=== PATIENT | female | born 1980 | race Caucasian/White ===

== ENCOUNTER 2017-03-05 17:10 | Inpatient (IN) | payer OTHER ==
[~2017-03-05] VITALS: Ht 172.7 cm; Wt 108.0 kg
[2017-03-05] MEDS ORDERED: ALBU90OI INH (17:48)
[2017-03-05] MEDS ORDERED: LEVOTHYROXINE100 MCG IM (17:48)
[2017-03-05] MEDS ORDERED: Verotin-Gr Cap1 EACH PO (17:48)
[2017-03-05 17:58] LABS: BASOPHILS ABSOLUTE AUTO 0.04 K/mm3 (0.00-0.23); BASOPHILS PERCENT AUTO 0 % (0-2); EOSINOPHILS PERCENT AUTO 3 % (0-6); Hematocrit 35.3 % (33.0-51.0); Hemoglobin 11.7 g/dL (11.5-16.0); IMMATURE GRAN ABSOLUTE AUTO 0.17 K/mm3 (0.00-0.10); IMMATURE GRAN PERCENT AUTO 1 % (0-1); LYMPHOCYTES ABSOLUTE AUTO 2.96 K/mm3 (0.84-5.20); LYMPHOCYTES PERCENT AUTO 22 % (21-46); MONOCYTES ABSOLUTE AUTO 0.75 K/mm3 (0.16-1.47); MONOCYTES PERCENT AUTO 6 % (4-13); Mean Corpuscular HGB 29.3 pg (26.0-34.0); Mean Corpuscular HGB Conc 33.1 g/dL (31.5-36.5); Mean Corpuscular Volume 88 fL (80-100); Mean Platelet Volume 9.8 fL (9.1-12.4); NEUTROPHILS ABSOLUTE AUTO 9.16 K/mm3 (1.96-9.15); NEUTROPHILS PERCENT AUTO 68 % (41-73); Platelet Count 308 K/mm3 (150-400); RDW Coefficient Variation 14.6 % (11.7-14.2); RDW Standard Deviation 46.8 fL (35.1-46.3); White Blood Cell Count 13.48 K/mm3 (4.00-11.30)
[2017-03-06 06:35] LABS: Hematocrit 28.5 % (33.0-51.0); Hemoglobin 9.2 g/dL (11.5-16.0); Mean Corpuscular HGB Conc 32.3 g/dL (31.5-36.5); Mean Corpuscular Volume 90 fL (80-100); Mean Platelet Volume 10.2 fL (9.1-12.4); Platelet Count 267 K/mm3 (150-400); RDW Coefficient Variation 14.6 % (11.7-14.2); RDW Standard Deviation 46.9 fL (35.1-46.3); Red Blood Cell Count 3.17 M/mm3 (3.80-5.20); White Blood Cell Count 18.24 K/mm3 (4.00-11.30)
[2017-03-07 06:36] LABS: BASOPHILS ABSOLUTE AUTO 0.05 K/mm3 (0.00-0.23); BASOPHILS PERCENT AUTO 0 % (0-2); EOSINOPHILS ABSOLUTE AUTO 0.25 K/mm3 (0.00-0.68); EOSINOPHILS PERCENT AUTO 2 % (0-6); Hematocrit 27.2 % (33.0-51.0); Hemoglobin 8.6 g/dL (11.5-16.0); IMMATURE GRAN ABSOLUTE AUTO 0.14 K/mm3 (0.00-0.10); IMMATURE GRAN PERCENT AUTO 1 % (0-1); LYMPHOCYTES ABSOLUTE AUTO 3.43 K/mm3 (0.84-5.20); LYMPHOCYTES PERCENT AUTO 26 % (21-46); MONOCYTES ABSOLUTE AUTO 0.71 K/mm3 (0.16-1.47); MONOCYTES PERCENT AUTO 5 % (4-13); Mean Corpuscular HGB 29.3 pg (26.0-34.0); Mean Corpuscular HGB Conc 31.6 g/dL (31.5-36.5); Mean Corpuscular Volume 93 fL (80-100); Mean Platelet Volume 9.8 fL (9.1-12.4); NEUTROPHILS PERCENT AUTO 65 % (41-73); Platelet Count 270 K/mm3 (150-400); RDW Coefficient Variation 15.1 % (11.7-14.2); RDW Standard Deviation 50.2 fL (35.1-46.3); Red Blood Cell Count 2.94 M/mm3 (3.80-5.20); White Blood Cell Count 13.08 K/mm3 (4.00-11.30)
[2017-03-08] MEDS ORDERED: Percocet 5-3251 EACH PO (09:31)
== END 2017-03-08 10:05 | disposition home or self-care (01) | DRG 775 ==
LOC: OBS 17:10 → BC 17:16 → OBS 17:28 → BC 17:31
PROVIDERS: Advanced Practice Midwife
PROC: 10E0XZZ Delivery of Products of Conception, External Approach (ICD-10-PCS; principal; 2017-03-06)
PROC: 0KQM0ZZ Repair Perineum Muscle, Open Approach (ICD-10-PCS; 2017-03-06)
DX: O99.824 Streptococcus B carrier state complicating childbirth (principal); E66.9 Obesity, unspecified; E03.9 Hypothyroidism, unspecified; O69.2XX0 Labor and delivery complicated by other cord entanglement, with compression, not applicable or unspecified; O99.284 Endocrine, nutritional and metabolic diseases complicating childbirth; O99.214 Obesity complicating childbirth; O70.1 Second degree perineal laceration during delivery; Z3A.39 39 weeks gestation of pregnancy; Z37.0 Single live birth; Z79.899 Other long term (current) drug therapy; Z88.8 Allergy status to other drugs, medicaments and biological substances; Z88.6 Allergy status to analgesic agent; Z91.011 Allergy to milk products
CPT/HCPCS: 36415; 51702; 81003; 84443; 85025; 85027; J0290; J2405; J2590; J3010; J7050; J7120

== ENCOUNTER → 2017-04-13 | Outpatient (CLI) | payer OTHER ==
[~2017-04-13] MED LIST: ALBU90OI INH; LEVOTHYROXINE100 MCG IM; Percocet 5-3251 EACH PO; Verotin-Gr Cap1 EACH PO
[2017-04-13 14:54] LABS: Candida species (DNA Probe) Negative (NEGATIVE); G. vaginalis (DNA Probe) Negative (NEGATIVE); T. vaginalis (DNA Probe) Negative (NEGATIVE)
== END ==
LOC: LAB 10:42
PROVIDERS: Advanced Practice Midwife
DX: N76.0 Acute vaginitis (principal)
CPT/HCPCS: 87480; 87510; 87660

== ENCOUNTER → 2018-03-19 | Outpatient (CLI) | payer OTHER ==
[2018-03-19 15:24] LABS: Follicle Stimulating Hormone 12.3 mIU/ml; Free Thyroxine 1.07 ng/dL (0.70-1.60)
[2018-03-19 15:28] LABS: Thyroid Stimulating Hormone 2.75 uIU/mL (0.360-4.800); Triiodothyronine, Free 2.62 pg/mL (2.18-3.98)
== END ==
LOC: LAB SHORT 10:20 → LAB 10:20 → LAB SHORT 11:30
PROVIDERS: Advanced Practice Midwife
DX: E03.9 Hypothyroidism, unspecified (principal); N97.9 Female infertility, unspecified
CPT/HCPCS: 82306; 82670; 83001; 84439; 84443; 84481

== ENCOUNTER → 2022-12-03 | Outpatient (CLI) | payer OTHER ==
[2022-12-06 12:08] LABS: HPV 16 Negative (Negative); HPV 18 Negative (Negative); HPV OTHER HR TYPES Negative (Negative)
== END ==
LOC: LAB 17:18 → LAB SHORT 17:18
PROVIDERS: Advanced Practice Midwife
DX: Z01.419 Encounter for gynecological examination (general) (routine) without abnormal findings (principal)
CPT/HCPCS: 87624; G0145

== ENCOUNTER 2023-03-18 19:57 | Emergency (ER) | payer OTHER ==
[~2023-03-18] VITALS: Ht 172.7 cm; Wt 117.0 kg
[2023-03-18 20:03] VITALS: BP 147/110
[2023-03-18] MEDS ORDERED: Albuterol 2.5 MG/3 ML VIAL INH SCH (20:05)
[2023-03-18] MEDS ORDERED: MethylPREDNISolone Sod Succ 125 MG Vial IV ONE (22:50)
[2023-03-18] MEDS ORDERED: Prednisone20 MG PO (23:16)
[2023-03-18] MEDS ORDERED: Ventolin5 MG/1 ML INH (23:16)
[2023-03-20] MEDS ORDERED: IPRAT-ALBUT 0.5-3 ML INH (17:32)
== END 2023-03-19 00:27 | disposition home or self-care (01) ==
LOC: ER 19:57
DX: J45.901 Unspecified asthma with (acute) exacerbation (principal); Z88.8 Allergy status to other drugs, medicaments and biological substances; Z79.899 Other long term (current) drug therapy; Z79.890 Hormone replacement therapy
CPT/HCPCS: 94644; 94664; 96374; 99284-25; J2930

== ENCOUNTER → 2023-07-27 | Outpatient (CLI) | payer OTHER ==
[~2023-07-27] MED LIST changes: +IPRAT-ALBUT 0.5-3 ML INH; +Prednisone20 MG PO; +Ventolin5 MG/1 ML INH
== END ==
LOC: LAB 13:24 → LAB SHORT 13:24
DX: N72 Inflammatory disease of cervix uteri (principal)
CPT/HCPCS: 88305

== ENCOUNTER → 2024-12-05 | Outpatient (CLI) | payer OTHER | END | disposition home or self-care (01) | LOC: LAB SHORT 09:57 → LAB 09:57 | PROVIDERS: Advanced Practice Midwife | DX: Z01.419 Encounter for gynecological examination (general) (routine) without abnormal findings (principal) | CPT/HCPCS: 87624; G0145 ==